=== PATIENT | male | born 1950 | race Caucasian/White ===

== ENCOUNTER 2017-08-08 10:38 | Day surgery (SDC) | payer OTHER ==
[~2017-08-08 10:38] MED LIST: CEFAZOLIN 2 GM/50 ML (PMX) 50 ML IVPB
[2017-08-08] MEDS ORDERED: ROCURONIUM 50 MG INJ (11:50)
[2017-08-08] MEDS ORDERED: CEFAZOLIN 1 GM INJ (11:50)
[2017-08-08] MEDS ORDERED: PROPOFOL 20 ML (11:50)
[2017-08-08] MEDS ORDERED: MIDAZOLAM 1 MG/ML 2 ML INJ (11:50)
[2017-08-08] MEDS ORDERED: LABETALOL HCL 20MG INJ IV (12:00)
[2017-08-08] MEDS ORDERED: MEPERIDINE 25 MG INJ IV (12:00)
[2017-08-08] MEDS ORDERED: HYDROmorphONE (0.2 MG/ML) 10ML SYG IV ×2 (12:00)
[2017-08-08] MEDS ORDERED: FENTAnyl 50 MCG/ML VIAL IV ×3 (12:00)
[2017-08-08] MEDS ORDERED: OXYCODONE/ACETAMINOPHEN (5/325) TAB PO (12:00)
[2017-08-08] MEDS ORDERED: DIPHENHYDRAMINE 50 MG INJ IV (12:00)
[2017-08-08] MEDS ORDERED: METOCLOPRAMIDE 10 MG INJ IV (12:00)
[2017-08-08] MEDS ORDERED: ONDANSETRON 4 MG INJ IV (12:00)
[2017-08-08] MEDS ORDERED: EPHEDrine SULFATE 50 MG/5 ML SYG IV (12:00)
[2017-08-08] MEDS ORDERED: hydrALAzine 20 MG INJ IV (12:00)
[2017-08-08] MEDS ORDERED: SUGAMMADEX SODIUM 200 MG/2 ML VIAL IV (13:11)
[2017-08-08] MEDS ORDERED: DEXAMETHASONE 4 MG/ML 1 ML INJ (13:11)
[2017-08-08] MEDS ORDERED: ONDANSETRON 4 MG INJ (13:11)
[2017-08-08] MEDS ORDERED: METOCLOPRAMIDE 10 MG INJ (13:11)
[2017-08-08] MEDS ORDERED: KETOROLAC 30 MG INJ (13:11)
[2017-08-08] MEDS ORDERED: HYDROCODONE/APAP (5/325) TAB PO (13:30)
[2017-08-08] MEDS: HYDROmorphONE (0.2 MG/ML) 10ML SYG IV (14:13)
[2017-08-08] MEDS: OXYCODONE/ACETAMINOPHEN (5/325) TAB PO (14:50)
== END 2017-08-08 15:10 | disposition home or self-care (01) ==
LOC: SDS 10:38
DX: N21.0 Calculus in bladder (principal); I10 Essential (primary) hypertension
CPT/HCPCS: 52281; 87086; 88300

== ENCOUNTER 2017-08-09 03:46 | Emergency (ER) | payer OTHER ==
[2017-08-09 05:02] LABS: URINE BLOOD (Dip) POC 3+ (NEGATIVE); URINE KETONES (Dip) POC 1+ (NEGATIVE); URINE LEUKOCYTE EST (Dip) POC 3+ (NEGATIVE); URINE NITRITE (Dip) POC Negative (NEGATIVE); URINE TOTAL PROTEIN POC 3+ (NEGATIVE)
[2017-08-09 05:02] LABS: URINE PH (Dip) POC 5.5 (5.0-8.5)
[2017-08-09] MEDS ORDERED: HYDROmorphONE 1 MG/5 ML IV SYRINGE IV (05:17)
[2017-08-09 05:19] LABS: ADD MAN DIFF? NO
[2017-08-09] MEDS: CEFTRIAXONE 1 GM/50 ML (PMX) 50 ML IVPB (05:19)
[2017-08-09 05:25] LABS: WHITE BLOOD COUNT 7.9 10^3/ul (4.8-10.8)
[2017-08-09 05:25] LABS: BASOPHILS % 0.1 % (0.0-2.0); EOSINOPHILS % 0.3 % (0.0-7.0); HEMATOCRIT 35.3 % (42.0-52.0); LYMPHOCYTES # 0.9 10^3/ul (0.8-2.9); MEAN CORPUSCULAR HEMOGLOBIN 30.7 pg (29.0-33.0); MEAN CORPUSCULAR VOLUME 90.3 fl (82.0-101.0); MEAN PLATELET VOLUME 10.6 fl (7.4-10.4); MONOCYTE # 0.6 10^3/ul (0.3-0.9); MONOCYTES % 7.9 % (0.0-11.0); NEUTROPHIL # 6.3 10^3/ul (1.6-7.5); NEUTROPHILS % 80.3 % (39.0-77.0); PLATELET COUNT 230 10^3/UL (140-415); RED BLOOD COUNT 3.91 10^6/ul (4.70-6.10); RED CELL DISTRIBUTION WIDTH 13.5 % (11.5-14.5)
[2017-08-09] MEDS: LIDOCAINE 2% JELLY 5 ML TOP (05:25)
[2017-08-09] MEDS: HYDROmorphONE 1 MG/ML SYG IV (05:50)
[2017-08-09 05:51] LABS: INR 1.02; PARTIAL THROMBOPLASTIN TIME 26.9 Sec (25.0-35.0); PROTIME 13.5 Sec (11.9-14.9); PT RATIO 1.1
[2017-08-09 05:59] LABS: ALANINE AMINOTRANSFERASE 27 IU/L (13-69); ALBUMIN 4.1 g/dl (3.3-4.9); ALBUMIN/GLOBULIN RATIO 1.51; ALKALINE PHOSPHATASE 69 IU/L (42-121); ANION GAP 16 (8-16); ASPARTATE AMINO TRANSFERASE 17 IU/L (15-46); BILIRUBIN,INDIRECT 0.7 mg/dl (0-1.1); BILIRUBIN,TOTAL 0.7 mg/dl (0.2-1.3); BLOOD UREA NITROGEN 17 mg/dl (7-20); CALCIUM 8.8 mg/dl (8.4-10.2); CARBON DIOXIDE 24 mmol/L (21-31); CHLORIDE 107 mmol/L (97-110); CREATININE 0.91 mg/dl (0.61-1.24); GLUCOSE 151 mg/dl (70-220); POTASSIUM 3.8 mmol/L (3.5-5.1); SODIUM 143 mmol/L (135-144); TOTAL PROTEIN 6.8 g/dl (6.1-8.1)
[2017-08-09 06:23] LABS: ADD UMIC YES; UR ASCORBIC ACID NEGATIVE (NEGATIVE); UR BILIRUBIN (Dip) NEGATIVE (NEGATIVE); UR BLOOD (Dip) 3+ mg/dL (NEGATIVE); UR CLARITY TURBID (CLEAR); UR COLOR BLUE (YELLOW); UR GLUCOSE (Dip) 2+ mg/dL (NEGATIVE); UR KETONES (Dip) NEGATIVE (NEGATIVE); UR LEUKOCYTE ESTERASE (Dip) NEGATIVE Leu/ul (NEGATIVE); UR NITRITE (Dip) NEGATIVE (NEGATIVE); UR RBC > 182 /HPF (0-5); UR SPECIFIC GRAVITY (Dip) 1.025 (1.003-1.030); UR TOTAL PROTEIN (Dip) 3+ mg/dl (NEGATIVE); UR UROBILINOGEN (Dip) NEGATIVE (NEGATIVE); UR WBC 14 /HPF (0-5)
[2017-08-09] MEDS ORDERED: ACETAMINOPHEN 325 MG TAB PO (08:00)
[2017-08-09] MEDS ORDERED: ONDANSETRON 4 MG INJ IV (08:00)
[2017-08-09] MEDS ORDERED: morphine 2 MG INJ IV (08:00)
[2017-08-09] MEDS: SOD CHLORIDE 0.9% 1,000 ML IV ×2 (10:05→21:09)
[2017-08-09] MEDS: morphine LIQ (10 MG/5 ML) CUP PO (23:18)
[2017-08-10] MEDS: CEFTRIAXONE 1 GM/50 ML (PMX) 50 ML IVPB (05:24)
[2017-08-10 05:47] LABS: ADD MAN DIFF? NO
[2017-08-10 05:50] LABS: BASOPHILS % 0.3 % (0.0-2.0); EOSINOPHILS # 0.2 10^3/ul (0.0-0.5); EOSINOPHILS % 2.6 % (0.0-7.0); HEMATOCRIT 35.5 % (42.0-52.0); HEMOGLOBIN 11.8 g/dl (14.0-18.0); LYMPHOCYTES % 27.5 % (15.0-51.0); MEAN CORPUSCULAR HEMOGLOBIN 30.7 pg (29.0-33.0); MEAN CORPUSCULAR HGB CONC 33.2 g/dl (32.0-37.0); MEAN CORPUSCULAR VOLUME 92.4 fl (82.0-101.0); MEAN PLATELET VOLUME 11.1 fl (7.4-10.4); MONOCYTE # 0.6 10^3/ul (0.3-0.9); MONOCYTES % 7.7 % (0.0-11.0); NEUTROPHIL # 4.5 10^3/ul (1.6-7.5); NEUTROPHILS % 61.5 % (39.0-77.0); PLATELET COUNT 208 10^3/UL (140-415); RED BLOOD COUNT 3.84 10^6/ul (4.70-6.10); RED CELL DISTRIBUTION WIDTH 13.6 % (11.5-14.5)
[2017-08-10 05:50] LABS: WHITE BLOOD COUNT 7.3 10^3/ul (4.8-10.8)
[2017-08-10 06:23] LABS: ANION GAP 11 (8-16); BLOOD UREA NITROGEN 12 mg/dl (7-20); CALCIUM 8.5 mg/dl (8.4-10.2); CARBON DIOXIDE 28 mmol/L (21-31); CHLORIDE 111 mmol/L (97-110); CREATININE 0.87 mg/dl (0.61-1.24); GLUCOSE 94 mg/dl (70-220); SODIUM 146 mmol/L (135-144)
[2017-08-10] MEDS: SOD CHLORIDE 0.9% 1,000 ML IV ×2 (12:02→23:44)
[2017-08-10] MEDS ORDERED: hydrALAzine 20 MG INJ IV (15:30)
[2017-08-10] MEDS: AMLODIPINE 2.5 MG TAB PO (18:27)
[2017-08-11] MEDS: CEFTRIAXONE 1 GM/50 ML (PMX) 50 ML IVPB (04:57)
[2017-08-11 05:18] LABS: ADD MAN DIFF? NO
[2017-08-11 05:24] LABS: BASOPHILS % 0.3 % (0.0-2.0); EOSINOPHILS # 0.2 10^3/ul (0.0-0.5); EOSINOPHILS % 3.3 % (0.0-7.0); HEMATOCRIT 36.2 % (42.0-52.0); HEMOGLOBIN 12.2 g/dl (14.0-18.0); LYMPHOCYTES # 1.8 10^3/ul (0.8-2.9); LYMPHOCYTES % 29.4 % (15.0-51.0); MEAN CORPUSCULAR HEMOGLOBIN 30.5 pg (29.0-33.0); MEAN CORPUSCULAR HGB CONC 33.7 g/dl (32.0-37.0); MEAN CORPUSCULAR VOLUME 90.5 fl (82.0-101.0); MONOCYTE # 0.5 10^3/ul (0.3-0.9); MONOCYTES % 8.8 % (0.0-11.0); NEUTROPHIL # 3.5 10^3/ul (1.6-7.5); NEUTROPHILS % 57.7 % (39.0-77.0); PLATELET COUNT 201 10^3/UL (140-415); RED CELL DISTRIBUTION WIDTH 13.5 % (11.5-14.5)
[2017-08-11 05:54] LABS: ANION GAP 13 (8-16); BLOOD UREA NITROGEN 12 mg/dl (7-20); CALCIUM 8.7 mg/dl (8.4-10.2); CARBON DIOXIDE 27 mmol/L (21-31); CHLORIDE 109 mmol/L (97-110); CREATININE 0.76 mg/dl (0.61-1.24); GLUCOSE 98 mg/dl (70-220); SODIUM 145 mmol/L (135-144)
[2017-08-11] MEDS: AMLODIPINE 2.5 MG TAB PO (09:21)
== END 2017-08-11 13:56 | disposition home or self-care (01) ==
LOC: E/R 03:46 → MS1 05:07
DX: R31.9 Hematuria, unspecified (principal); I10 Essential (primary) hypertension; Z87.442 Personal history of urinary calculi
CPT/HCPCS: 74176; 80048; 80053; 81001; 81003; 85025; 85610; 85730; 87086; 96374; 96375; 99285-25